=== PATIENT | female | born 1955 | race Caucasian/White ===

== ENCOUNTER → 2016-08-23 | Outpatient (CLI) | payer MEDICARE, MEDICAID | LOC: COL.VAS 08:23 | DX: M79.89 Other specified soft tissue disorders (principal); I87.2 Venous insufficiency (chronic) (peripheral) ==

== ENCOUNTER → 2016-09-05 | Outpatient (CLI) | payer MEDICARE, MEDICAID | LOC: COL.RAD 12:04 | DX: R19.09 Other intra-abdominal and pelvic swelling, mass and lump (principal) | CPT/HCPCS: Q9967 ==

== ENCOUNTER → 2017-03-21 | Outpatient (CLI) | payer MEDICARE, MEDICAID | LOC: MHCPAIN 11:23 | DX: G89.29 Other chronic pain (principal); M47.27 Other spondylosis with radiculopathy, lumbosacral region; Z87.891 Personal history of nicotine dependence | CPT/HCPCS: G0463 ==

== ENCOUNTER → 2017-06-12 | Outpatient (CLI) | payer MEDICARE, MEDICAID | LOC: MHCPAIN 10:34 | DX: G89.29 Other chronic pain (principal); M47.27 Other spondylosis with radiculopathy, lumbosacral region; M53.3 Sacrococcygeal disorders, not elsewhere classified; Z87.891 Personal history of nicotine dependence | CPT/HCPCS: G0463 ==

== ENCOUNTER → 2017-07-05 | Outpatient (CLI) | payer MEDICARE, MEDICAID | LOC: MHCPAIN 12:40 | DX: M47.27 Other spondylosis with radiculopathy, lumbosacral region (principal); M51.36 Other intervertebral disc degeneration, lumbar region | CPT/HCPCS: J1100; J2250; J3010; Q9967 ==

== ENCOUNTER → 2017-07-18 | Outpatient (CLI) | payer MEDICARE, MEDICAID | LOC: MHCPAIN 13:13 | DX: G89.29 Other chronic pain (principal); M47.27 Other spondylosis with radiculopathy, lumbosacral region; M53.3 Sacrococcygeal disorders, not elsewhere classified; Z87.891 Personal history of nicotine dependence | CPT/HCPCS: G0463 ==

== ENCOUNTER → 2017-09-26 | Outpatient (CLI) | payer MEDICARE, MEDICAID | LOC: MHCPAIN 13:06 | DX: G89.29 Other chronic pain (principal); M47.817 Spondylosis without myelopathy or radiculopathy, lumbosacral region; M54.16 Radiculopathy, lumbar region; M53.3 Sacrococcygeal disorders, not elsewhere classified; M17.0 Bilateral primary osteoarthritis of knee; M16.0 Bilateral primary osteoarthritis of hip | CPT/HCPCS: G0463 ==

== ENCOUNTER 2020-07-09 09:54 | Day surgery (SDC) | payer MEDICARE, MEDICAID ==
[~2020-07-09] VITALS: Ht 157.5 cm; Wt 111.5 kg
[2020-07-09] VITALS (11 sets, daily range): BP systolic 118–165; BP diastolic 66–91; PULSE 62–95; TEMP 98.5
[2020-07-09 10:41] LABS: HEMOGLOBIN 12.9 g/dl (12.5-16.0); MEAN CELL VOLUME 87 fl (80.0-100.0); MEAN CORPUSCULAR HEMOGLOBIN 27 pg (27.0-31.0); MEAN CORPUSCULAR HGB CONC 32 g/dl (33.0-37.0); MEAN PLATELET VOLUME 9.2 fl (7.4-10.4); PLATELET COUNT 167 K/mm3 (130-400); RED BLOOD COUNT 4.74 M/mm3 (4.10-5.30); REDCELL DISTRIBUTION WIDTH-CV 13.3 % (11.5-14.5)
[2020-07-09 10:47] LABS: CALCIUM 9.5 mg/dL (8.4-10.2); CREATININE, serum 0.83 (0.52-1.25); POTASSIUM 4.5 mmol/L (3.4-5.0)
[2020-07-09 10:54] LABS: PROTHROMBIN TIME 11.4 SECONDS (9.7-12.8)
[2020-07-09 10:57] LABS: PARTIAL THROMBOPLASTIN TIME 35.1 SECONDS (26.0-37.0)
[2020-07-09] MEDS ORDERED: NYAMYC100000 U/G TP (11:44)
[2020-07-09] MEDS ORDERED: ZILRETTA32 MG TOP (11:45)
[2020-07-09] MEDS ORDERED: NEURONTIN300 MG/CAP PO (11:46)
[2020-07-09] MEDS ORDERED: PLAVIX 75MG TAB75 MG PO (11:47)
[2020-07-09] MEDS ORDERED: CARDIZEM HC90 MG/CAP PO (11:47)
[2020-07-09] MEDS ORDERED: ASPIRIN E.C. 8181 MG PO (11:47)
[2020-07-09] MEDS ORDERED: COLACE 100100 MG/CAP PO (11:48)
[2020-07-09] MEDS ORDERED: SYNTHROID 0.10.15 MG PO (11:49)
[2020-07-09] MEDS ORDERED: PRINIVIL40 MG PO (11:49)
[2020-07-09] MEDS ORDERED: PROAIR HFA0.09 MG/AC IH (11:49)
[2020-07-09] MEDS ORDERED: DAZIDOX20 MG PO (11:50)
[2020-07-09] MEDS ORDERED: ATARAX 25MG25 MG/TAB PO (11:50)
[2020-07-09] MEDS ORDERED: RT ADVAIR 228 DISKUS IH (11:51)
[2020-07-09] MEDS ORDERED: D3-5050000 IU PO (11:51)
[2020-07-09] MEDS ORDERED: MELATIN 3 MG-11 TAB PO (11:52)
[2020-07-09] MEDS ORDERED: BENADRYL25 M2 PO (11:52)
[2020-07-09] MEDS ORDERED: TUMS500 MG PO (11:52)
[2020-07-09] MEDS ORDERED: CENTRUM SILVER1 TAB PO (11:53)
[2020-07-09] MEDS ORDERED: METAMUCIL3.4 GM/DOS PO (11:53)
[2020-07-09] MEDS ORDERED: TYLENOL 8 HR PO (11:53)
--- NOTE | 2020-07-09 16:45 | NUR ---
Air has been removed in 2ml increments from TR band starting at 1515. No bleeding or issue with removal of air. Rt radial puncture site dressed with folded 2x2 and bandaid. IV DC'd with catheter intact. Pt has been steady on feet, up to restroom with her walker. She has tolerated PO intake without issue. DC instructions reviewed and pt expresses understanding. She was assisted out to son's car by wheelchair with personal belongings.
== END 2020-07-09 17:22 | disposition home or self-care (01) ==
LOC: COL.CAR
PROVIDERS: Internal Medicine Interventional Cardiology
DX: R07.89 Other chest pain (principal); R60.0 Localized edema; I10 Essential (primary) hypertension; I73.9 Peripheral vascular disease, unspecified; E03.9 Hypothyroidism, unspecified; J44.9 Chronic obstructive pulmonary disease, unspecified; G47.30 Sleep apnea, unspecified; Z90.710 Acquired absence of both cervix and uterus; Z90.89 Acquired absence of other organs; Z79.899 Other long term (current) drug therapy; Z79.82 Long term (current) use of aspirin; Z79.02 Long term (current) use of antithrombotics/antiplatelets; Z20.822 Contact with and (suspected) exposure to COVID-19; Z87.891 Personal history of nicotine dependence; Z88.1 Allergy status to other antibiotic agents; Z91.040 Latex allergy status; Z88.6 Allergy status to analgesic agent; Z80.9 Family history of malignant neoplasm, unspecified; Z82.3 Family history of stroke
CPT/HCPCS: C1769; J1644; J2250; J3010; Q9967

== ENCOUNTER 2020-11-17 20:16 | Inpatient (IN) | payer MEDICARE, MEDICAID ==
[~2020-11-17] VITALS: Ht 157.5 cm; Wt 100.0 kg
[~2020-11-17 20:16] MED LIST: ASPIRIN E.C. 8181 MG PO; ATARAX 25MG25 MG/TAB PO; BENADRYL25 M2 PO; CARDIZEM HC90 MG/CAP PO; CENTRUM SILVER1 TAB PO; COLACE 100100 MG/CAP PO; D3-5050000 IU PO; DAZIDOX20 MG PO; MELATIN 3 MG-11 TAB PO; METAMUCIL3.4 GM/DOS PO; NEURONTIN300 MG/CAP PO; NYAMYC100000 U/G TP; PLAVIX 75MG TAB75 MG PO; PRINIVIL40 MG PO; PROAIR HFA0.09 MG/AC IH; RT ADVAIR 228 DISKUS IH; SYNTHROID 0.10.15 MG PO; TUMS500 MG PO; TYLENOL 8 HR PO; ZILRETTA32 MG TOP
[2020-11-17 22:08] LABS: BASO % 0.1 % (0.0-2.0); EOS % 0.1 % (0-4.0); GRAN # 12.5 (1.4-6.5); GRAN % 89.9 % (42.2-75.2); LYMPH # 0.5 (1.2-3.4); LYMPH % 3.6 % (20.0-51.0); MEAN CELL VOLUME 84 fl (80.0-100.0); MEAN CORPUSCULAR HEMOGLOBIN 27 pg (27.0-31.0); MEAN CORPUSCULAR HGB CONC 32 g/dl (33.0-37.0); MEAN PLATELET VOLUME 9.4 fl (7.4-10.4); MONO # 0.8 (0.1-0.6); MONO % 5.4 % (1.7-9.3); PLATELET COUNT 152 K/mm3 (130-400); RED BLOOD COUNT 4.09 M/mm3 (4.10-5.30); REDCELL DISTRIBUTION WIDTH-CV 13.1 % (11.5-14.5)
[2020-11-17 22:12] LABS: HEMATOCRIT 34.5 % (37.0-47.0)
[2020-11-17 22:15] LABS: COLLECTION METHOD CLEAN CATCH
[2020-11-17 22:17] LABS: ALBUMIN 4.3 gm/dL (3.5-5.0); BILIRUBIN,TOTAL 0.4 mg/dL (0.0-1.0); CALCIUM 9.1 mg/dL (8.4-10.2); CREATININE, serum 0.85 (0.52-1.25); TOTAL PROTEIN 8.4 gm/dL (6.4-8.2)
[2020-11-17 22:20] LABS: PH 7 (5-8); SQUAMOUS EPITHELIAL 0-2 /hpf; URINE APPEARANCE Clear; URINE BACTERIA None Seen /hpf; URINE BILIRUBIN Negative (NEGATIVE); URINE BLOOD Negative (NEGATIVE); URINE COLOR Yellow; URINE GLUCOSE Negative (NEGATIVE); URINE KETONE Negative (NEGATIVE); URINE LEUKOCYTE ESTERASE Negative (NEGATIVE); URINE NITRATE Negative (NEGATIVE); URINE PROTEIN(semi-quant) Negative (NEGATIVE); URINE UROBILINOGEN Negative (NEGATIVE)
[2020-11-18] MEDS ORDERED: CARDIZEM120 MG PO (03:25)
[2020-11-18] MEDS ORDERED: SYNTHROID 0.10.15 MG PO (03:25)
[2020-11-18] MEDS ORDERED: CARDIZEM SR 60M60 MG PO (03:26)
[2020-11-18] MEDS ORDERED: OXYCONTIN 20MG20 MG PO (03:27)
[2020-11-18] MEDS ORDERED: MOVANTIK25 MG PO (03:27)
[2020-11-18 04:42] VITALS: BP 134/87; PULSE 89; TEMP 100.1
--- NOTE | 2020-11-18 04:44 | NUR ---
Vancomycin Initial Dosing Pharmacy Note Ordering provider: Don Thayer MD 65 YO F Indication/duration: SEPSIS/FEVER OF [place] ORIGIN / 7 DAYS GOAL: 15-20 HX: NONE IDENTIFIED BMI: 40.3 WT: 100 KG ADJBW: 70 KG SCR: 0.85 ADJBW ESTCRCL ~ 74 ML/MIN T 1/2 ~ 10.5H TMAX: 103.1 WBC: 13.9 LA: 1.1 UA UNREMARKABLE MICRO IN PROCESS NO IMAGING AT THIS TIME PT LOADED WITH 2 GM X1 (20 MG/KG). WILL START A MAINTENANCE REGIMEN OF 1 GM Q12H. WILL FOLLOW CLOSELY PT AT RISK FOR NOT FOLLOWING POPULAION BASED KINETICS AND ACCUMULATION 2/2 ELEVATED BMI. WILL FOLLOW RENAL FUNCTION, MICRO, AND ABX PLAN FOR NEED TO ADJUST THERAPY. THANK YOU FOR THIS DOSING CONSULT!
[2020-11-18 07:23] VITALS: BP 144/69; PULSE 87; TEMP 99.8
--- NOTE | 2020-11-18 09:44 | NUR ---
Pt assessment complete. Pt is restless, she denies any further N/V. She does endorse back pain, PRN pain medication administered. Pt is able to tell me she is in the hospital, her birthday and the president. Pt's family is currently refusing the lumbar puncture as they would like the patient to make this decision. IVF infusing without issues. SCD's in place, pt removed the left leg one due to pain. Able to take PO meds without issues. Purewick in place. Call light within reach, bed alarm in place.
--- NOTE | 2020-11-18 10:36 | NUR ---
MINOO staffed with the patient's RN. The patient's RN reports that it would be better for SW to complete intake with family. MINOO contacted the patient's son, Erich (ph#[phone]), to discuss discharge plan. The patient lives in [place] with Erich. Erich reports that the patient has been independent with ADLs and has a rollator and cane. The patient's primary care provider is Diana Grayson APRN at [facility] in and she receives her medications from [facility]. Erich reports no difficulties obtaining her meds. The patient does not have a DPOA-HC in EMR. Erich reports that he believes that the patient does have one completed and that it designates his sister, Krissy (ph#[phone]). He states that he thinks [facility] has a copy of the document and that he will also check with his sister to see if she has a copy. The patient is not and she has three children: Krissy ([place]), Erich, and Sailaja ([place]). MINOO contacted Nicolasa at [facility] in and requested the patient's DPOA-HC. Nicolasa reports that they have the patient's advanced directives and will fax the document to the medical unit. Erich reports that he has no concerns with the patient returning back home with him upon discharge. He states that he works from home. PT/OT have been ordered. SW to continue to follow. *Discharge plan: home with son, awaiting therapy's recs*
[2020-11-18 11:59] VITALS: BP 126/57; PULSE 76; TEMP 100.3
[2020-11-18 14:13] LABS: BASO % 0.1 % (0.0-2.0); GRAN # 7.8 (1.4-6.5); GRAN % 84.1 % (42.2-75.2); LYMPH # 0.7 (1.2-3.4); LYMPH % 7.5 % (20.0-51.0); MEAN CELL VOLUME 86 fl (80.0-100.0); MEAN CORPUSCULAR HGB CONC 31 g/dl (33.0-37.0); MEAN PLATELET VOLUME 9.8 fl (7.4-10.4); MONO # 0.7 (0.1-0.6); MONO % 7.5 % (1.7-9.3); PLATELET COUNT 104 K/mm3 (130-400); RED BLOOD COUNT 3.22 M/mm3 (4.10-5.30)
[2020-11-18 14:17] LABS: HEMATOCRIT 27.6 % (37.0-47.0); MEAN CORPUSCULAR HEMOGLOBIN 27 pg (27.0-31.0)
[2020-11-18 14:18] LABS: HEMOGLOBIN 8.6 g/dl (12.5-16.0)
[2020-11-18 14:21] LABS: INR 1.4 (0.8-3.0); PROTHROMBIN TIME 15.6 SECONDS (9.7-12.8)
[2020-11-18 16:46] VITALS: BP 139/65; PULSE 84; TEMP 99.6
[2020-11-18 17:10] LABS: TRICYCLIC ANTIDEPRESS URINE NEGATIVE
[2020-11-18 18:00] LABS: ANION GAP 7 mmol/L (7-16); BLOOD UREA NITROGEN 10 mg/dL (7-17); CALCIUM 7.3 mg/dL (8.4-10.2); CARBON DIOXIDE 20 mmol/L (22-30); CHLORIDE 114 mmol/L (98-107); CREATININE, serum 0.54 (0.52-1.25); GLUCOSE 98 mg/dL (74-106); SODIUM 141 mmol/L (137-145)
[2020-11-18 18:02] LABS: POTASSIUM 2.7 mmol/L (3.4-5.0); SALICYLATE < 1.0 mg/dL
--- NOTE | 2020-11-18 18:56 | NUR ---
Pt more alert and oriented this afternoon. Continued to report pain and be restless, PRN pain medication ordered and administered. Repositioned patient to comfort. Denies any SOB. Pt did not get U/S of abdomen d/t no staff availability. Family continues to decline LP. POC discussed with patient and her daughter. No further needs, call light within reach.
[2020-11-18 20:25] VITALS: BP 101/47; PULSE 82; TEMP 98.6
[2020-11-18 20:46] LABS: TROPONIN-I 0.802 ng/mL (0.000-0.035)
--- NOTE | 2020-11-18 22:38 | NUR ---
Pt has been crying this evening. Vss. Pain rated 0/10. Pt is currently on 2 L she desat with exertion. Will continue to monitor.
[2020-11-18 23:17] VITALS: BP 134/73; PULSE 76; TEMP 98.5
[2020-11-19 03:29] VITALS: BP 135/61; PULSE 95; TEMP 98.6
[2020-11-19 06:39] LABS: BASO % 0.3 % (0.0-2.0); GRAN # 5.5 (1.4-6.5); GRAN % 77.7 % (42.2-75.2); LYMPH # 0.8 (1.2-3.4); LYMPH % 11.3 % (20.0-51.0); MEAN CELL VOLUME 86 fl (80.0-100.0); MEAN CORPUSCULAR HGB CONC 31 g/dl (33.0-37.0); MEAN PLATELET VOLUME 10.1 fl (7.4-10.4); MONO # 0.7 (0.1-0.6); MONO % 9.9 % (1.7-9.3); PLATELET COUNT 115 K/mm3 (130-400); RED BLOOD COUNT 3.42 M/mm3 (4.10-5.30); REDCELL DISTRIBUTION WIDTH-CV 13.2 % (11.5-14.5)
[2020-11-19 06:40] LABS: HEMATOCRIT 29.3 % (37.0-47.0); HEMOGLOBIN 9.1 g/dl (12.5-16.0); MEAN CORPUSCULAR HEMOGLOBIN 27 pg (27.0-31.0)
[2020-11-19 06:49] LABS: CALCIUM 8.4 mg/dL (8.4-10.2); CREATININE, serum 0.66 (0.52-1.25); POTASSIUM 3.8 mmol/L (3.4-5.0)
[2020-11-19 08:00] VITALS: BP 140/68; PULSE 77; TEMP 98.3
[2020-11-19 12:00] VITALS: BP 145/74; PULSE 73; TEMP 98.3
--- NOTE | 2020-11-19 13:20 | NUR ---
PICC intact right upper arm with large amount of reddish drainage under dressing. Sterile dressing change done with insertion site cleansed with chloraprep x 1, skin prep, stat lock, chlorhexidine impregnated disk applied, and tegaderm applied, no further drainage noted. no signs or symptoms of IV complications noted. re-wrapped with an nelson to protect catheter.
[2020-11-19 16:38] VITALS: BP 148/88; PULSE 75; TEMP 98.5
--- NOTE | 2020-11-19 18:51 | NUR ---
Patient called and c/o pain at approx 1630. This RN gave the patient her PRN oxycodone. Patient stated she will leave the facility if her pain is not managed the way she would like. The patient told the physician that she takes 20mg of oxycodone nearly 5x/day. Patient is only recieving 10mg. Patient wants her dose increased to 20mg and it was explained that the frequency of which she can receive the medication was changed from every 6hrs, to every 4hrs. Patient was given PRN oxycodone with PRN tylenol and told she could have more pain medicine in 4hrs.
[2020-11-19 20:15] VITALS: BP 135/76; PULSE 73; TEMP 98.6
--- NOTE | 2020-11-19 22:09 | NUR ---
Pt has been ok but still in pain. Pain rated 7/10.. Oxycodone was given. Will continue to monitor.
[2020-11-19 23:48] VITALS: BP 133/74; PULSE 70; TEMP 98.3
[2020-11-20 04:18] VITALS: BP 109/45; PULSE 61; TEMP 97.8
[2020-11-20 06:17] LABS: BASO % 0.4 % (0.0-2.0); EOS % 0.9 % (0-4.0); GRAN # 3.3 (1.4-6.5); GRAN % 71.3 % (42.2-75.2); LYMPH # 0.8 (1.2-3.4); LYMPH % 17.4 % (20.0-51.0); MEAN CELL VOLUME 86 fl (80.0-100.0); MEAN CORPUSCULAR HGB CONC 32 g/dl (33.0-37.0); MEAN PLATELET VOLUME 10.3 fl (7.4-10.4); MONO # 0.4 (0.1-0.6); MONO % 9.1 % (1.7-9.3); PLATELET COUNT 120 K/mm3 (130-400); REDCELL DISTRIBUTION WIDTH-CV 13.2 % (11.5-14.5)
[2020-11-20 06:18] LABS: HEMATOCRIT 29.2 % (37.0-47.0); HEMOGLOBIN 9.3 g/dl (12.5-16.0); MEAN CORPUSCULAR HEMOGLOBIN 27 pg (27.0-31.0)
[2020-11-20 06:26] LABS: CALCIUM 8.6 mg/dL (8.4-10.2); CREATININE, serum 0.57 (0.52-1.25); POTASSIUM 3.7 mmol/L (3.4-5.0)
[2020-11-20 07:14] VITALS: BP 151/87; PULSE 73; TEMP 98.1
--- NOTE | 2020-11-20 08:00 | NUR ---
Patient sitting up in bed awake. VSS. IV CDI. Reporting pain in back, requesting pain medication. Perwick in place. Nurse informed the patient that the patient will have to get up and use the bathroom. Patient verbalized an understanding. Patient is wanting to go home today. No further needs expressed from the patient. Call light within reach. Bed alarm on
[2020-11-20 12:00] VITALS: BP 142/65; PULSE 73; TEMP 98.1
[2020-11-20 16:00] VITALS: BP 143/65; PULSE 65; TEMP 98.2
--- NOTE | 2020-11-20 17:51 | NUR ---
Patient had complaints of back pain unrelieved by pain medication. Pain medication dose increased to home dose and pain more controlled. VSS. IV CDI. Patient standby assist with steady gait. Has been calling for assistance with ambulation. Patient is hoping to go home soon. No further needs expressed from the patient. Call light within reach. Bed alarm on
--- NOTE | 2020-11-20 19:05 | NUR ---
Received report from [place]. Patient awake, lying in bed. Denies needs at this time.
[2020-11-20 20:47] VITALS: BP 144/72; PULSE 65; TEMP 98.2
--- NOTE | 2020-11-20 21:00 | NUR ---
Assesment done. Patient on room air. She complains of pain on her back. Oxycodone given. She is standby assist and uses her walker. Informed her to call us if she needs to get up.
[2020-11-21 00:17] VITALS: BP 138/54; PULSE 65; TEMP 98.1
[2020-11-21 04:47] VITALS: BP 122/67; PULSE 73; TEMP 98.8
[2020-11-21 06:57] LABS: BASO % 0.3 % (0.0-2.0); EOS # 0.1 (0.0-0.7); EOS % 2.1 % (0-4.0); GRAN # 2.6 (1.4-6.5); GRAN % 68.4 % (42.2-75.2); LYMPH # 0.8 (1.2-3.4); LYMPH % 20.6 % (20.0-51.0); MEAN CELL VOLUME 85 fl (80.0-100.0); MEAN CORPUSCULAR HGB CONC 31 g/dl (33.0-37.0); MEAN PLATELET VOLUME 9.8 fl (7.4-10.4); MONO # 0.3 (0.1-0.6); MONO % 8.1 % (1.7-9.3); PLATELET COUNT 137 K/mm3 (130-400); RED BLOOD COUNT 3.65 M/mm3 (4.10-5.30); REDCELL DISTRIBUTION WIDTH-CV 13.1 % (11.5-14.5)
--- NOTE | 2020-11-21 07:02 | NUR ---
Patient doing much better. She is more on standby assist when ambulating and she's using her walker. She still complains of pain and oxycodone given.
[2020-11-21 07:07] LABS: HEMOGLOBIN 9.5 g/dl (12.5-16.0); MEAN CORPUSCULAR HEMOGLOBIN 26 pg (27.0-31.0)
[2020-11-21 07:08] LABS: CALCIUM 8.6 mg/dL (8.4-10.2); CREATININE, serum 0.61 (0.52-1.25); POTASSIUM 3.4 mmol/L (3.4-5.0)
[2020-11-21 07:55] VITALS: BP 149/82; PULSE 69; TEMP 98.4
--- NOTE | 2020-11-21 08:18 | NUR ---
Pt assessment complete. Pt is sitting up in bed upon entry, she is A/O x4. Her breathing is even and unlabored on RA. Pt denies SOB. No pain at this time. Denies N/V. Discussed VTE prophalaxyis with patient as well as fall risk precautions. NO needs at this time. Call light within reach.
--- NOTE | 2020-11-21 10:12 | NUR ---
Sw met with the pt to speak about HH services. Sw informed pt that PT is recommending PT/OT, nursing services from HH for her. Pt called her DPOA daughter, Nir to go over HH options while Sw was in the room. The pt chose [facility] and for second choice [facility]. The pt and daughter both requested that we not use [facility] at all. The Sw faxed over D/c orders and referral info to [facility]. Pt is d/c today 11/21. Care of plan: Sw to call HH agents and awaiting approvals from [facility].
[2020-11-21] MEDS ORDERED: SENNA-S 50 MG-81 TAB PO (10:13)
[2020-11-21] MEDS ORDERED: AMOXICILLIN 8751 TAB PO (10:14)
[2020-11-21 11:46] VITALS: BP 149/67; PULSE 70; TEMP 98.9
--- NOTE | 2020-11-21 13:25 | NUR ---
Silas spoke with [facility] and they have accepted her. Silas refaxed over D/c order and referral to Ann customer acquisition specialist. Ann informed Silas they will call her to setup up everthing. Ann will call Silas if she needs anything else.
--- NOTE | 2020-11-21 14:30 | NUR ---
Discharge paperwork and instructions reviewed with patient and her daughter, all questions answered at this time. PICC to RUE removed. Pt wheeled out of facility.
== END 2020-11-21 14:50 | disposition home or self-care (01) | DRG 871 ==
LOC: COL.ER 20:16 → MEDICAL 11-18 03:00
PROVIDERS: Emergency Medicine Emergency Medical Services; Nurse Practitioner Family; Physician Assistant; ADMIT Student in an Organized Health Care Education/Training Program
PROC: 02HV33Z Insertion of Infusion Device into Superior Vena Cava, Percutaneous Approach (ICD-10-PCS; principal; 2020-11-18)
DX: A41.9 Sepsis, unspecified organism (principal); G93.41 Metabolic encephalopathy; G03.9 Meningitis, unspecified; I21.A1 Myocardial infarction type 2; L03.116 Cellulitis of left lower limb; G89.4 Chronic pain syndrome; J44.9 Chronic obstructive pulmonary disease, unspecified; M19.90 Unspecified osteoarthritis, unspecified site; E03.9 Hypothyroidism, unspecified; I10 Essential (primary) hypertension; G62.9 Polyneuropathy, unspecified; R53.81 Other malaise; D64.9 Anemia, unspecified; I87.2 Venous insufficiency (chronic) (peripheral); R25.1 Tremor, unspecified; E11.51 Type 2 diabetes mellitus with diabetic peripheral angiopathy without gangrene; F32.9 Major depressive disorder, single episode, unspecified; F41.9 Anxiety disorder, unspecified; N31.9 Neuromuscular dysfunction of bladder, unspecified; G47.33 Obstructive sleep apnea (adult) (pediatric); R09.02 Hypoxemia; R77.8 Other specified abnormalities of plasma proteins; Z79.890 Hormone replacement therapy; Z79.891 Long term (current) use of opiate analgesic; Z79.02 Long term (current) use of antithrombotics/antiplatelets; Z87.891 Personal history of nicotine dependence; Z88.1 Allergy status to other antibiotic agents; Z86.73 Personal history of transient ischemic attack (TIA), and cerebral infarction without residual deficits; Z88.6 Allergy status to analgesic agent; Z88.8 Allergy status to other drugs, medicaments and biological substances; Z20.822 Contact with and (suspected) exposure to COVID-19
CPT/HCPCS: OP; 99223-AI; 99233-AI; 99239; C1751; J0696; J1650; J2060; J2270; J2543; J3370; J3480; J7030; J7050; Q9967

== ENCOUNTER 2020-12-05 23:10 | Emergency (ER) | payer MEDICARE, MEDICAID ==
[~2020-12-05] VITALS: Ht 172.7 cm; Wt 122.7 kg
[~2020-12-05 23:10] MED LIST changes: +AMOXICILLIN 8751 TAB PO; +CARDIZEM SR 60M60 MG PO; +CARDIZEM120 MG PO; +MOVANTIK25 MG PO; +OXYCONTIN 20MG20 MG PO; +SENNA-S 50 MG-81 TAB PO
[2020-12-05 23:19] VITALS: TEMP 99
[2020-12-05 23:48] LABS: BASO % 0.4 % (0.0-2.0); EOS % 0.2 % (0-4.0); GRAN # 4.4 (1.4-6.5); GRAN % 84.6 % (42.2-75.2); HEMOGLOBIN 10.2 g/dl (12.5-16.0); LYMPH # 0.4 (1.2-3.4); LYMPH % 8.4 % (20.0-51.0); MEAN CELL VOLUME 85 fl (80.0-100.0); MEAN CORPUSCULAR HEMOGLOBIN 27 pg (27.0-31.0); MEAN CORPUSCULAR HGB CONC 32 g/dl (33.0-37.0); MEAN PLATELET VOLUME 10.3 fl (7.4-10.4); MONO # 0.3 (0.1-0.6); PLATELET COUNT 168 K/mm3 (130-400); RED BLOOD COUNT 3.83 M/mm3 (4.10-5.30); REDCELL DISTRIBUTION WIDTH-CV 13.6 % (11.5-14.5)
[2020-12-05 23:50] LABS: HEMATOCRIT 32.4 % (37.0-47.0)
[2020-12-06 00:01] LABS: ALBUMIN 4.1 gm/dL (3.5-5.0); BILIRUBIN,TOTAL 0.5 mg/dL (0.0-1.0); CREATININE, serum 0.68 (0.52-1.25); TOTAL PROTEIN 7.8 gm/dL (6.4-8.2)
[2020-12-06 00:07] LABS: POTASSIUM 4.2 mmol/L (3.4-5.0)
[2020-12-06 00:16] LABS: TROPONIN-I 0.014 ng/mL (0.000-0.035)
[2020-12-06 00:18] LABS: COLLECTION METHOD CATHETER
[2020-12-06 00:25] LABS: MUCOUS Present /lpf; PH 7 (5-8); SQUAMOUS EPITHELIAL None Seen /hpf; URINE APPEARANCE Clear; URINE BACTERIA None Seen /hpf; URINE BILIRUBIN Negative (NEGATIVE); URINE BLOOD Negative (NEGATIVE); URINE COLOR Yellow; URINE GLUCOSE Negative (NEGATIVE); URINE KETONE Negative (NEGATIVE); URINE LEUKOCYTE ESTERASE Negative (NEGATIVE); URINE NITRATE Negative (NEGATIVE); URINE PROTEIN(semi-quant) Negative (NEGATIVE); URINE RBC 0-2 /hpf; URINE UROBILINOGEN Negative (NEGATIVE)
[2020-12-06] MEDS ORDERED: AMOXICILLIN 8751 TAB PO (00:54)
[2020-12-06 02:03] VITALS: BP 154/80; PULSE 88
== END 2020-12-06 02:03 | disposition home or self-care (01) ==
LOC: COL.ER 23:10
PROVIDERS: Emergency Medicine
DX: K81.9 Cholecystitis, unspecified (principal); J44.9 Chronic obstructive pulmonary disease, unspecified; E03.9 Hypothyroidism, unspecified; I10 Essential (primary) hypertension; G40.909 Epilepsy, unspecified, not intractable, without status epilepticus; G89.4 Chronic pain syndrome; Z86.73 Personal history of transient ischemic attack (TIA), and cerebral infarction without residual deficits; Z90.710 Acquired absence of both cervix and uterus; Z79.890 Hormone replacement therapy; Z79.899 Other long term (current) drug therapy; Z79.891 Long term (current) use of opiate analgesic
CPT/HCPCS: J7030

== ENCOUNTER 2021-01-03 09:11 | Day surgery (SDC) | payer MEDICARE, MEDICAID ==
[2021-01-03] VITALS (10 sets, daily range): BP systolic 127–161; BP diastolic 48–86; PULSE 47–61; TEMP 97.8–98.3
[~2021-01-03] VITALS: Ht 157.5 cm; Wt 112.3 kg
[2021-01-03] MEDS ORDERED: TOPROL XL100 MG PO (09:58)
[2021-01-03] MEDS ORDERED: OXYGEN IH ×2 (09:59→10:00)
[2021-01-03] MEDS ORDERED: ACIDOPHILIS PO (10:01)
[2021-01-03] MEDS ORDERED: BENADRYL25 M2 PO (10:01)
[2021-01-03] MEDS ORDERED: MASON NATURAL2000 IU PO (10:02)
[2021-01-03 11:06] LABS: BASO % 0.7 % (0.0-2.0); EOS # 0.2 (0.0-0.7); EOS % 4.6 % (0-4.0); GRAN # 2.6 (1.4-6.5); GRAN % 60.2 % (42.2-75.2); HEMOGLOBIN 10.7 g/dl (12.5-16.0); LYMPH # 0.9 (1.2-3.4); LYMPH % 21.3 % (20.0-51.0); MEAN CELL VOLUME 81 fl (80.0-100.0); MEAN CORPUSCULAR HEMOGLOBIN 25 pg (27.0-31.0); MEAN CORPUSCULAR HGB CONC 31 g/dl (33.0-37.0); MEAN PLATELET VOLUME 9.6 fl (7.4-10.4); MONO # 0.6 (0.1-0.6); PLATELET COUNT 206 K/mm3 (130-400); RED BLOOD COUNT 4.25 M/mm3 (4.10-5.30); REDCELL DISTRIBUTION WIDTH-CV 13.7 % (11.5-14.5)
[2021-01-03 11:08] LABS: HEMATOCRIT 34.6 % (37.0-47.0)
[2021-01-03 11:16] LABS: BILIRUBIN,TOTAL 0.2 mg/dL (0.0-1.0); CREATININE, serum 0.69 (0.52-1.25); POTASSIUM 4.4 mmol/L (3.4-5.0); TOTAL PROTEIN 7.6 gm/dL (6.4-8.2)
--- NOTE | 2021-01-03 11:27 | NUR ---
1030: ANESTHESIA NOTIFIED THAT PRE-OP WAS UNABLE TO START IV OR DRAW PREPROCEDURE LABS. 1035: ANESTHESIA PROVIDER AT BEDSIDE WITH ULTRA SOUND TO ATTEMPT IV START. UNABLE TO START IV BUT PREPROCEDURE LABS DRAWN. 1120: PATIENT SENT TO PACU FOR CENTRAL LINE INSERTION.
[2021-01-03] MEDS ORDERED: PERCOCET 325 MG1 TA2 PO (13:35)
--- NOTE | 2021-01-03 16:10 | NUR ---
PATIENT ADMITED INTO ROOM 322 POST OP ROBOTIC LAP HENNA. PACU REPORTED PATIENT HAD SVT IN RECOVERY AND WAS CONSULTED. PATIENT IS SR IN THE 50'S ON TELE NOW. ALL OTHER VSS. PATIENT C/O MILD BACK DISCOMFORT WHICH IS CHRONIC FOR HER. PATIENT STATES BACK PAIN IN BETTER ON HER SIDE. ABD LAP SITES X5 ARE CD&I WITH GLUED CLOSURE. NO C/O N/V. HEAD TO TOE ASSESSMENT COMPLETE. ORIENTED TO ROOM. DAUGHTER AT BEDSIDE. CALL LIGHT IN REACH.
--- NOTE | 2021-01-03 17:24 | NUR ---
RECEIVED REPORT FROM DAY SHIFT NURSE. FAMILY AT BEDSIDE. PATIENT C/O HEADACHE, SEE MAR FOR MEDS GIVEN FOR HEADACHE. DENIES CHEST PAIN/SOA AT TIME OF REPORT.
--- NOTE | 2021-01-03 17:30 | NUR ---
REPORTS NAUSEA INTERMITTENT. ABLE TO SWALLOWING WATER WITH TAKING TYLENOL.
--- NOTE | 2021-01-03 18:38 | NUR ---
TOLERATING INTAKE OF CRACKERS WITH NO C/O COMPLAINTS OF NAUSEA CURRENT BUT REPORTS NAUSEA IS STILL INTERMITTENT.
--- NOTE | 2021-01-03 20:51 | NUR ---
PATIENT STATING PERCOCET 5MG NOT HELPING WITH PAIN COMPLAINTS POST OP, WANTING TO TAKE HER HOME MED OXYCODONE 20MG PRN. CONFIRMED WITH PATIENT OF HOME MED OXYCODONE 20 MG EVERY 6 HOURS PRN WELL [facility] HX. CALLED DR JONES, ONCALL PROVIDER FOR SURGICAL ASSOC., INFORMED OF PATIENT'S REQUEST TO RESUME HOME PRN MED, OXYCODONE, ORDERS GIVEN TO RESUME OXYCODONE.
--- NOTE | 2021-01-04 03:01 | NUR ---
PATIENT SLEEPS, DOES NOT WAKE WHEN ROOM ENTERED BY STAFF. OBSERVED BREATHING NONLABORED AND EVEN. PATIENT HAS BEEN AMBULATING TO BATHROOM WITH WHEELED WALKER NEEDED WITH SOME ASSIST TO NONE. PAIN MANAGEMENT HAS IMPROVED SINCE TAKING HOME PAIN MED DOSING OF OXYCODONE 20MG. HAS BEEN TOLERATING PO INTAKE SO FAR THIS SHIFT, WITH SMALL AMOUNT OF ORAL INTAKE. ON ROOM AIR.
--- NOTE | 2021-01-04 03:16 | NUR ---
REQUESTED AND GIVEN PAIN MEDS, SEE MAR. OBSERVED PATIENT UP IN ROOM INDEPENDENTLY WITHOUT REPORTED COMPLAINTS OR PROBLEMS/CONCERNS. REPORTS IS WANTING TO GO HOME TODAY. DENIES NAUSEA/CHEST PAIN/SOA AT THIS TIME.
[2021-01-04 03:19] VITALS: BP 137/50; PULSE 53; TEMP 98.1
--- NOTE | 2021-01-04 06:06 | NUR ---
PATIENT UP INDEPENDENTLY IN ROOM, SCD NOT ON DUE TO INCREASED MOBILITY THIS MORNING.
[2021-01-04 07:13] VITALS: BP 139/64; PULSE 59; TEMP 98.7
--- NOTE | 2021-01-04 07:13 | NUR ---
CHANGE OF SHIFT REPORT GIVEN TO DAY SHIFT NURSE, TORY TOMPKINS.
--- NOTE | 2021-01-04 09:14 | NUR ---
Patient requests pain medication for back, hip, neck and knee pain. No c/o abdominal pain at this time.
--- NOTE | 2021-01-04 09:45 | NUR ---
Patient alert and oriented, answers questions appropriately. See assessment. Abdomen soft, non tender, non distended. Bowel sounds active x4 quads. +Flatus. Lap sites to abdomen with edges well approximated, no redness or drainage noted. Post op exercises reviewed with patient. No c/o at this time.
--- NOTE | 2021-01-04 10:02 | NUR ---
dairy feed worker met with patient to discuss discharge plan. Patient lives with her son Erich ([phone]) in [place]. PCP is Bessy Grayson APRN and uses [facility] in [place] for perscriptions. Reports no trouble affording medications. Patient moved in with her son due to multiple falls and uses a walker to ambulate. She has been receiving HH through [facility] and will resume post wi. Patient reports her established DPOA-HC is her daughter Krissy [phone]. Plans to return home with [facility]. *Discharge plan: Home with son and HH*
[2021-01-04 10:22] LABS: MEAN CELL VOLUME 83 fl (80.0-100.0); MEAN CORPUSCULAR HGB CONC 31 g/dl (33.0-37.0); MEAN PLATELET VOLUME 9.8 fl (7.4-10.4); PLATELET COUNT 183 K/mm3 (130-400); RED BLOOD COUNT 3.84 M/mm3 (4.10-5.30); REDCELL DISTRIBUTION WIDTH-CV 13.7 % (11.5-14.5)
[2021-01-04 10:28] LABS: HEMOGLOBIN 9.8 g/dl (12.5-16.0); MEAN CORPUSCULAR HEMOGLOBIN 26 pg (27.0-31.0)
[2021-01-04 10:38] LABS: ALBUMIN 3.5 gm/dL (3.5-5.0); BILIRUBIN,TOTAL 0.2 mg/dL (0.0-1.0); CALCIUM 8.7 mg/dL (8.4-10.2); CREATININE, serum 0.73 (0.52-1.25); POTASSIUM 3.9 mmol/L (3.4-5.0); TOTAL PROTEIN 6.7 gm/dL (6.4-8.2)
[2021-01-04 11:58] VITALS: BP 138/70; PULSE 57; TEMP 98.3
--- NOTE | 2021-01-04 13:01 | NUR ---
First visit from the rehabilitation therapist. No needs right now.
--- NOTE | 2021-01-04 14:35 | NUR ---
Patient rang call light, stated "I'm on the floor." Upon entering room, patient laying on back on floor in front of chair. States she went to sit in the chair, and the chair moved back, she attempted to grab her walker for support, but the walker moved forward. Patient states she did not hit head. Patient assisted from lying to sitting to standing. Ambulated around bed and laid in bed. States no increased pain from fall. VS obtained. Dr Connelly notified.
[2021-01-04 14:42] VITALS: BP 155/65; PULSE 55; TEMP 97.9
[2021-01-04 16:01] VITALS: BP 155/65; PULSE 55; TEMP 97.9
--- NOTE | 2021-01-04 17:09 | NUR ---
RIJ removed with no complications at 1645. Patient laid flat in bed for thirty minutes after removal. Gauze and tegaderm applied.
--- NOTE | 2021-01-04 18:40 | NUR ---
Discharge instructions reviewed with patient and daughter, verbalized understanding. Discharged via wheelchair to auto/home with daughter at 1750.
== END 2021-01-04 17:50 | disposition home or self-care (01) ==
LOC: SDCO 09:11 → SURG 16:10 → SDCO 01-04 17:50
PROVIDERS: Surgery
DX: K80.10 Calculus of gallbladder with chronic cholecystitis without obstruction (principal); I97.191 Other postprocedural cardiac functional disturbances following other surgery; R07.9 Chest pain, unspecified; I47.1 Supraventricular tachycardia; D64.9 Anemia, unspecified; I10 Essential (primary) hypertension; J44.9 Chronic obstructive pulmonary disease, unspecified; G47.33 Obstructive sleep apnea (adult) (pediatric); I87.2 Venous insufficiency (chronic) (peripheral); I25.10 Atherosclerotic heart disease of native coronary artery without angina pectoris; G62.9 Polyneuropathy, unspecified; K21.9 Gastro-esophageal reflux disease without esophagitis; G89.29 Other chronic pain; E66.9 Obesity, unspecified; Z95.820 Peripheral vascular angioplasty status with implants and grafts; Z79.82 Long term (current) use of aspirin; Z79.02 Long term (current) use of antithrombotics/antiplatelets; Z79.899 Other long term (current) drug therapy; Z79.51 Long term (current) use of inhaled steroids; Z87.891 Personal history of nicotine dependence; Z85.89 Personal history of malignant neoplasm of other organs and systems
CPT/HCPCS: OP; J0360; J0690; J1100; J1885; J2270; J2405; J2550; J2704; J3010

== ENCOUNTER 2021-05-13 06:33 | Day surgery (SDC) | payer MEDICARE, MEDICAID ==
[~2021-05-13] VITALS: Ht 157.5 cm; Wt 109.9 kg
[~2021-05-13 06:33] MED LIST changes: +ACIDOPHILIS PO; +MASON NATURAL2000 IU PO; +OXYGEN IH; +PERCOCET 325 MG1 TA2 PO; +TOPROL XL100 MG PO
[2021-05-13] MEDS ORDERED: OXYCONTIN 20MG20 MG PO (07:00)
[2021-05-13] MEDS ORDERED: MOVANTIK25 MG PO (07:01)
[2021-05-13] MEDS ORDERED: ASPIRIN 81M81 MG/TA2 PO (07:01)
[2021-05-13] MEDS ORDERED: OXYGEN (07:02)
[2021-05-13 07:23] VITALS: BP 179/93; PULSE 69; TEMP 97.9
[2021-05-13 09:20] VITALS: BP 142/85; PULSE 55; TEMP 97.3
[2021-05-13 09:35] VITALS: BP 151/71; PULSE 61
[2021-05-13 09:50] VITALS: BP 165/74; PULSE 65
--- NOTE | 2021-05-13 10:10 | NUR ---
Went through discharge instructions with daughter and patient. Questions answered. Verbalized understanding to education.
--- NOTE | 2021-05-13 10:28 | NUR ---
0920: Patient arrived back into bay 3 from endo procedure. Patient on cart. Report recieved from TURNER Finley. Patient's daughter at bedside. Patient requesting coffee and mc crackers. Reports some off and on gas pain. Patient had incontinent episode while in endo procedure room and lower extremity weeping edema dressings were saturated with urine. Dressing removed and dressing supplies obtained. 0930: Patient in chair. Dressing changes were performed on lower extremities with adaptic, 4x4's, and soft roll. New socks were also applied. 0940: MD in to see patient. 0950: IV out and Patient got dressed with assistance of daughter. Went to restroom with assist of tech and daughter. 1015: Patient escorted to patient entrance via wheelchair with daughter. Patient got into personal vehicle and left in the care of her daughter.
== END 2021-05-13 10:20 | disposition home or self-care (01) ==
LOC: SDCO 06:33
DX: K22.2 Esophageal obstruction (principal); K21.00 Gastro-esophageal reflux disease with esophagitis, without bleeding; K29.30 Chronic superficial gastritis without bleeding; K59.09 Other constipation; R19.7 Diarrhea, unspecified; G89.29 Other chronic pain; I10 Essential (primary) hypertension; J44.9 Chronic obstructive pulmonary disease, unspecified; G47.33 Obstructive sleep apnea (adult) (pediatric); M19.90 Unspecified osteoarthritis, unspecified site; G62.9 Polyneuropathy, unspecified; E03.9 Hypothyroidism, unspecified; E66.01 Morbid (severe) obesity due to excess calories; Z79.899 Other long term (current) drug therapy; Z86.010 Personal history of colon polyps; Z79.82 Long term (current) use of aspirin; Z79.02 Long term (current) use of antithrombotics/antiplatelets; Z79.890 Hormone replacement therapy; Z79.891 Long term (current) use of opiate analgesic; Z87.891 Personal history of nicotine dependence; Z99.89 Dependence on other enabling machines and devices; Z86.73 Personal history of transient ischemic attack (TIA), and cerebral infarction without residual deficits
CPT/HCPCS: C1726; J2704; J7030

== ENCOUNTER 2021-09-28 20:10 | Emergency (ER) | payer MEDICARE, MEDICAID ==
[~2021-09-28] VITALS: Ht 157.5 cm; Wt 109.1 kg
[~2021-09-28 20:10] MED LIST changes: +ASPIRIN 81M81 MG/TA2 PO; +OXYGEN
[2021-09-28 20:18] VITALS: TEMP 99.1
[2021-09-28 20:51] LABS: COLLECTION METHOD CLEAN CATCH
[2021-09-28 21:04] LABS: PH 9 (5-8); SQUAMOUS EPITHELIAL 0-2 /hpf (0-10); URINE APPEARANCE Clear (CLEAR/HAZY); URINE BACTERIA None Seen /hpf (NONE SEEN); URINE BILIRUBIN Negative (NEGATIVE); URINE BLOOD 1+ (NEGATIVE); URINE COLOR Yellow (YELLOW); URINE GLUCOSE Negative (NEGATIVE); URINE KETONE Negative (NEGATIVE); URINE LEUKOCYTE ESTERASE Negative (NEGATIVE); URINE NITRATE Negative (NEGATIVE); URINE PROTEIN(semi-quant) Negative (NEGATIVE); URINE RBC 0-2 /hpf (0-2); URINE UROBILINOGEN Negative (NEGATIVE)
[2021-09-28 21:16] LABS: BASO % 0.2 % (0.0-2.0); EOS % 0.3 % (0.0-4.0); GRAN # 4.8 K/mm3 (1.4-6.5); GRAN % 83.9 % (42.2-75.2); HEMATOCRIT 42.4 % (37.0-47.0); HEMOGLOBIN 14.3 g/dl (12.5-16.0); LYMPH # 0.6 K/mm3 (1.2-3.4); LYMPH % 9.9 % (20.0-51.0); MEAN CELL VOLUME 82 fl (80.0-100.0); MEAN CORPUSCULAR HEMOGLOBIN 28 pg (27-31); MEAN CORPUSCULAR HGB CONC 34 g/dl (33.0-37.0); MEAN PLATELET VOLUME 9.8 fl (7.4-10.4); MONO # 0.3 K/mm3 (0.1-0.6); MONO % 5.2 % (1.7-9.3); PLATELET COUNT 155 K/mm3 (130-400); RED BLOOD COUNT 5.19 M/mm3 (4.10-5.30)
[2021-09-28 21:37] LABS: ALANINE AMINOTRANSFERASE 74 U/L (0-55); ALBUMIN 3.9 gm/dL (3.4-4.8); ALKALINE PHOSPHATASE 401 U/L (40-150); ANION GAP 13 mmol/L (7-16); AST,SGOT 99 U/L (5-34); BILIRUBIN,TOTAL 0.9 mg/dL (0.2-1.2); BLOOD UREA NITROGEN 14 mg/dL (10-20); CALCIUM 9.4 mg/dL (8.4-10.2); CARBON DIOXIDE 24 mmol/L (23-31); CHLORIDE 104 mmol/L (98-107); CREATININE, serum 0.79 mg/dL (0.57-1.11); GLUCOSE 111 mg/dL (70-99); LIPASE 54 U/L (8-78); SODIUM 141 mmol/L (136-145); TOTAL PROTEIN 8.2 gm/dL (6.2-8.1)
[2021-09-28 21:50] LABS: TROPONIN-I < 0.010 ng/mL (0.00-0.033)
[2021-09-28 22:52] VITALS: BP 160/62; PULSE 59
== END 2021-09-28 22:52 | disposition home or self-care (01) ==
LOC: COL.ER 20:10
PROVIDERS: Emergency Medicine
DX: R10.31 Right lower quadrant pain (principal); R53.81 Other malaise; Z20.822 Contact with and (suspected) exposure to COVID-19; Z91.040 Latex allergy status; Z87.19 Personal history of other diseases of the digestive system; Z90.49 Acquired absence of other specified parts of digestive tract; Z28.310 Unvaccinated for COVID-19
CPT/HCPCS: J1885; J2270; J7030; Q9967

== ENCOUNTER 2022-10-03 08:45 | Day surgery (SDC) | payer MEDICARE, MEDICAID ==
[~2022-10-03] VITALS: Ht 157.5 cm; Wt 110.0 kg
[2022-10-03] MEDS ORDERED: VITAMIN D250 MCG (09:38)
[2022-10-03] MEDS ORDERED: PEPCID AC20 MG PO (09:46)
[2022-10-03] MEDS ORDERED: ATARAX 25MG25 MG/TAB PO (09:46)
[2022-10-03 10:50] VITALS: BP 179/89; PULSE 68; TEMP 97.7
[2022-10-03 11:10] VITALS: BP 151/88; PULSE 16; TEMP 97
--- NOTE | 2022-10-03 11:10 | NUR ---
PATIENT RETURNED TO BAY 3 VIA CART, ALERT AND ORIENTED X4. BREATHING REGULAR AND UNLABORED. SKIN WARM AND DRY. IV IN PLACE. DENIES PAIN, NAUSEA AND SHORTNESS OF BREATH. SEE CHART FOR VITAL SIGNS. NURSE HANDOFF COMPLETED IN ROOM. PATIENT HAD A CUP OF WATER, TOLERATED WELL WITH NO DYSPHAGIA. DAUGHTER LAYANYA IN ROOM. CALL LIGHT IN REACH.
[2022-10-03 11:15] VITALS: BP 162/88; PULSE 61
[2022-10-03 11:30] VITALS: BP 177/96; PULSE 67
[2022-10-03 11:43] VITALS: BP 170/80; PULSE 64
--- NOTE | 2022-10-03 11:43 | NUR ---
MET WITH PATIENT AND NAZIA AT 1141 TO DISCUSS PROCEDURE. PATIENT IS REFUSING FOOD AT THIS TIME AND WAS INFORMED TO CALL 'S OFFICE IF SHE HAD ANY DIFFICULTY EATING OR WITH FOOD. DISCHARGE TEACHING COMPLETED WITH PRINTED EDUCATION AND INSTRUCTIONS SENT HOME WITH PATIENT. PATIENT AND NAZIA VERBALIZED UNDERSTANDING OF TEACHING. IV REMOVED. GAUZE AND COBAN PLACED OVER IV REMOVAL SITE. PATIENT AMBULATED WITH 1 ASSIST TO THE RESTROOM AND VOIDED. PATIENT DISCHARGED HOME WITH [facility].
== END 2022-10-03 11:50 | disposition home or self-care (01) ==
LOC: SDCO 08:45
DX: K21.00 Gastro-esophageal reflux disease with esophagitis, without bleeding (principal); D12.2 Benign neoplasm of ascending colon; D12.3 Benign neoplasm of transverse colon; K22.70 Barrett's esophagus without dysplasia; K59.00 Constipation, unspecified; K29.30 Chronic superficial gastritis without bleeding; K25.4 Chronic or unspecified gastric ulcer with hemorrhage; G47.33 Obstructive sleep apnea (adult) (pediatric); K64.0 First degree hemorrhoids; K92.1 Melena; Z99.81 Dependence on supplemental oxygen; Z80.0 Family history of malignant neoplasm of digestive organs
CPT/HCPCS: J2704; J7120

== ENCOUNTER 2024-02-15 10:32 | Day surgery (SDC) | payer MEDICARE, MEDICAID ==
[~2024-02-15] VITALS: Ht 157.5 cm; Wt 103.6 kg
[~2024-02-15 10:32] MED LIST changes: +ACTIGALL 300MG300 MG PO; +LR 1,000 ML IV SCH; +PEPCID AC20 MG PO; +VITAMIN D250 MCG PO
--- NOTE | 2024-02-15 11:22 | NUR ---
1045 PT WHEELED DOWN TO BAY 7 BY DAUGHTER. PT IS AXOX4. PT IS ON RA. VSS. IV STARTED AND IVF RUNNING. ADMISSION AND ASSESSMENT COMPLETED. PT AND DAUGHTER ORIENTED TO ROOM AND CALL LIGHT. CONSENT COMPLETED.
[2024-02-15] MEDS ORDERED: ENULOSE10 GM/15 M PO (11:31)
[2024-02-15] MEDS ORDERED: VESICARE 5MG5 MG PO (11:33)
[2024-02-15] MEDS ORDERED: LIDOCAINE HC20 MG/M2 PO (11:34)
[2024-02-15] MEDS ORDERED: COLACE 100100 MG/CAP PO (11:37)
[2024-02-15] MEDS ORDERED: MIRALAX119G PO (11:39)
[2024-02-15] MEDS ORDERED: FIBERCON PO (11:40)
[2024-02-15] MEDS ORDERED: NYAMYC100000 U/G TP (11:41)
[2024-02-15 11:45] VITALS: BP 128/77; PULSE 69; TEMP 98.1
[2024-02-15] MEDS ORDERED: Lidocaine PF 2% (20 MG/ML) 5 ML VIAL ONE (12:17)
[2024-02-15 12:45] VITALS: BP 148/86; PULSE 69; TEMP 98.1
--- NOTE | 2024-02-15 12:54 | NUR ---
Patient returns via cart from procedure at 1245. Patient denies complaints, VSS. Coffee given per request, refuses snack. Call light within reach.
[2024-02-15 13:00] VITALS: BP 158/99; PULSE 67
[2024-02-15 13:15] VITALS: BP 158/94; PULSE 68
--- NOTE | 2024-02-15 13:30 | NUR ---
1310- Dr. Umana in room to speak with patient 1315- Discharge instructions and education reviewed with patient and daughter. Questions answered. 1325- Pt dressed with assistance of this nurse and daughter. IV removed. 1330- Pt discharged to daughters car via w/c, accompanied by endo staff Marcia. Denies complaints.
== END 2024-02-15 13:30 | disposition home or self-care (01) ==
LOC: SDCO 10:32
DX: K83.8 Other specified diseases of biliary tract (principal); K74.3 Primary biliary cirrhosis; K59.00 Constipation, unspecified; K21.9 Gastro-esophageal reflux disease without esophagitis; Z90.49 Acquired absence of other specified parts of digestive tract; Z86.73 Personal history of transient ischemic attack (TIA), and cerebral infarction without residual deficits; Z79.82 Long term (current) use of aspirin; Z95.820 Peripheral vascular angioplasty status with implants and grafts; Z87.891 Personal history of nicotine dependence; Z79.899 Other long term (current) drug therapy
CPT/HCPCS: C1769; J2704; J7120